=== PATIENT | male | born 1965 | race Caucasian/White ===

== ENCOUNTER 2017-01-07 02:31 | Emergency (ER) ==
[2017-01-07 02:37] VITALS: BP 110/79; TEMP 99.8; BMI 19.9
[2017-01-07] MEDS ORDERED: ZOFRAN 4 MG/2 ML IVP STA (02:39)
[2017-01-07] MEDS ORDERED: SODIUM CHLORIDE 1,000 ML IV STA (02:39)
[2017-01-07 02:48] LABS: BASOPHILS # (AUTO) 0.1 K/uL (0-0.2); BASOPHILS % (AUTO) 0.7 % (0.0-3.0); EOSINOPHILS # (AUTO) 0.1 K/ul (0.0-0.7); EOSINOPHILS % (AUTO) 0.4 % (0.0-7.0); HEMATOCRIT 46.4 % (42.0-52.0); HEMOGLOBIN 15.9 g/dl (14.0-18.0); IMMATURE GRANULOCYTE % (AUTO) 0.4 % (0.0-5.0); LYMPHOCYTES # (AUTO) 0.2 K/uL (0.60-3.4); LYMPHOCYTES % (AUTO) 1.3 (10.0-50.0); MEAN CORPUSCULAR HEMOGLOBIN 30.7 pg (27.0-31.0); MEAN CORPUSCULAR HGB CONC 34.3 (31.8-35.4); MEAN CORPUSCULAR VOLUME 89.6 fl (80.0-94.0); MONOCYTES # (AUTO) 1.3 K/uL (0.4-2.0); MONOCYTES % (AUTO) 6.9 (0-10); NEUTROPHILS # (AUTO) 16.5 K/ul (2.0-6.9); NEUTROPHILS % (AUTO) 90.3; PLATELET COUNT 269 10^3/uL (140-440); RED BLOOD COUNT 5.18 10^6/ul (4.70-6.10)
--- NOTE | 2017-01-07 03:09 | CT ---
EXAM: CT abdomen pelvis without intravenous contrast 01/07/2017. Sagittal and coronal reformatted i mages obtained HISTORY: Abdominal pain COMPARISON: None. FINDINGS: The liver, gallbladder, adrenal glands and kidneys show no acute process. The spleen and pancreas show no acute abnormality. There is no evidence of bowel obstruction. Normal appendix. Unremarkable urinary bladder. There is no free air or free fluid. Diffusely fluid distal small bowel. Fluid filled appearance ext ends throughout the colon. The appearance is suggestive of enteritis/diarrhea. IMPRESSION: 1. Findings suggesting enteritis/diarrhea. 2. No urinary or bowel obstruction and normal appendix. 3. Technically limited examination due to the lack of intravenous contrast.
[2017-01-07 03:11] LABS: FLU INTERNAL QC INTERNAL QC VALID; RAPID FLU A NEGATIVE (NEGATIVE); RAPID FLU B NEGATIVE (NEGATIVE)
[2017-01-07 03:24] LABS: BILIRUBIN,URINE Negative (NEGATIVE); KETONES,URINE Trace (NEGATIVE); LEUKOCYTE ESTERASE ,URINE Negative (NEGATIVE); NITRITE,URINE Negative (NEGATIVE); PROTEIN,URINE Negative (NEGATIVE); URINE, BLOOD Negative (NEGATIVE)
[2017-01-07 03:25] LABS: ADD URINE MICROSCOPIC NO
[2017-01-07 03:25] LABS: ALBUMIN/GLOBULIN RATIO 0.89; ANION GAP 15.2; BILIRUBIN,TOTAL 1.1 mg/dL (0.00-1.20); BUN/CREATININE RATIO 15.62; CALCIUM 9.6 mg/dL (8.2-10.2); CREATINE KINASE MB 1.6 ng/ml (0.0-3.6); CREATININE 0.96 mg/dL (0.60-1.10); POTASSIUM 4.2 mmol/L (3.5-5.1); TOTAL PROTEIN 8.5 g/dL (6.4-8.2); TROPONIN I 0.018 ng/ml (0.0000-0.4000)
[2017-01-07] MEDS ORDERED: SODIUM CHLORIDE 500 ML IV STA (04:01)
--- NOTE | 2017-01-07 04:24 | ED.PDOC ---
General ED Provider: Dr. STEPHANIE PARKER-ER Chief Complaint: Nausea/Vomiting Stated Complaint: i was throwing up and having diarrhea Time Seen by Physician: 02:35 Mode of Arrival: Walk-In Information Source: Patient Exam Limitations: No limitations Nursing and Triage Documentation Reviewed and Agree: Yes GI Complaint Exam - Vomiting/Diarrhea Complaint/Exam Onset/Duration: afew hours Symptoms Are: Still present Initial Severity: Mild Current Severity: Mild Character of Diarrhea: Reports: Watery Aggravating: Reports: None Alleviating: Reports: None Associated Signs and Symptoms: Reports: Cramping Non-GI Risk Factors: Reports: None Surgical Obstruction Risk Factors: Reports: None Abdominal Findings: Present: None Kussmaul Respirations Present: No Differential Diagnoses: Cholecystitis, Viral Gastroenteritis, Bacterial Gastroenteritis Review of Systems - Review Of Systems Constitutional: Reports: No symptoms Eyes: Reports: No symptoms Ears, Nose, Mouth, Throat: Reports: No symptoms Respiratory: Reports: No symptoms Cardiac: Reports: No symptoms GI: Reports: Diarrhea, Nausea, Vomiting : Reports: No symptoms Musculoskeletal: Reports: No symptoms Skin: Reports: No symptoms Neurological: Reports: No symptoms Endocrine: Reports: No symptoms Hematologic/Lymphatic: Reports: No symptoms All Other Systems: Reviewed and Negative Past Medical History - Past Medical History Previously Healthy: Yes Endocrine: Reports: Unknown Cardiovascular: Reports: Unknown Respiratory: Reports: Unknown Hematological: Reports: Unknown Gastrointestinal: Reports: Unknown Genitourinary: Reports: Unknown Neuro/Psych: Reports: Unknown Musculoskeletal: Reports: Unknown Cancer: Reports: Unknown - Surgical History General Surgical History: Reports: Unknown - Family History Family History: Reports: Unknown - Social History Smoking Status: Never smoker Hx Substance Use: No Alcohol Screening: None - Immunizations Tetanus Shot up to Date: No Physical Exam - Physical Exam Appearance: Well-appearing, No pain distress, Well-nourished Eyes: ADOLFO, EOMI, Conjunctiva clear ENT: Ears normal, Nose normal, Oropharynx normal Neck: Supple Respiratory: Airway patent, Breath sounds clear, Breath sounds equal, Respirations nonlabored Cardiovascular: RRR GI/: Soft, Nontender, No masses, Bowel sounds normal, No Organomegaly Musculoskeletal: Normal strength Skin: Warm, Dry, Normal color Neurological: Sensation intact, Motor intact, Reflexes intact, Cranial nerves intact, Alert, Oriented Psychiatric: Affect appropriate, Mood appropriate Interpretation - Radiology Interpretation Radiology Interpretation By: Radiologist Radiology Results: Negative Exam Interpreted: CT Scan Re-Evaluation - Re-Evaluation Time of Re-Evaluation: 04:23 Status: Improved (no nausea or vomiting) Vital Signs Stable: Yes Pain Level: 0 Appearance: NAD Lungs: Clear Skin: Warm and Dry Neuro: Alert and Oriented X3 CV: RRR Critical Care Note - Critical Care Note Total Time (mins): 0 Course - Course Hematology/Chemistry: 01/07/17 02:45 01/07/17 02:45 Orders, Labs, Meds: Lab Review 01/07/17 01/07/17 01/07/17 02:45 02:45 02:45 WBC 18.30 H RBC 5.18 Hgb 15.9 Hct 46.4 MCV 89.6 MCH 30.7 MCHC 34.3 RDW Coeff of Bernabe 12.8 Plt Count 269 Immature Gran % (Auto) 0.4 Neut % (Auto) 90.3 Lymph % (Auto) 1.3 L [place] % (Auto) 6.9 Eos % (Auto) 0.4 Baso % (Auto) 0.7 Immature Gran # (Auto) 0.1 Neut # 16.5 H Lymph # 0.2 L [place] # 1.3 Eos # 0.1 Baso # 0.1 Sodium 141 Potassium 4.2 Chloride 106 Carbon Dioxide 24 Anion Gap 15.2 BUN 15 Creatinine 0.96 Estimated GFR (MDRD) 83.00 BUN/Creatinine Ratio 15.62 Glucose 155 H Calcium 9.6 Total Bilirubin 1.10 AST 28 ALT 31 Alkaline Phosphatase 98 Total Creatine Kinase 145 CK-MB (CK-2) 1.6 CK-MB (CK-2) % 1.27947 Troponin I 0.0180 Total Protein 8.5 H Albumin 4.0 Globulin 4.5 Albumin/Globulin Ratio 0.89 Amylase 49 Lipase 19 Urine Color Urine Clarity Urine pH Ur Specific [place] Urine Protein Urine Glucose (UA) Urine Ketones Urine Blood Urine Nitrite Urine Bilirubin Urine Urobilinogen Ur Leukocyte Esterase Influenza A (Rapid) Negative Influenza B (Rapid) Negative 01/07/17 03:10 WBC RBC Hgb Hct MCV MCH MCHC RDW Coeff of Bernabe Plt Count Immature Gran % (Auto) Neut % (Auto) Lymph % (Auto) [place] % (Auto) Eos % (Auto) Baso % (Auto) Immature Gran # (Auto) Neut # Lymph # [place] # Eos # Baso # Sodium Potassium Chloride Carbon Dioxide Anion Gap BUN Creatinine Estimated GFR (MDRD) BUN/Creatinine Ratio Glucose Calcium Total Bilirubin AST ALT Alkaline Phosphatase Total Creatine Kinase CK-MB (CK-2) CK-MB (CK-2) % Troponin I Total Protein Albumin Globulin Albumin/Globulin Ratio Amylase Lipase Urine Color Yellow Urine Clarity Clear Urine pH 7.0 Ur Specific [place] 1.020 Urine Protein Negative Urine Glucose (UA) Negative Urine Ketones Trace Urine Blood Negative Urine Nitrite Negative Urine Bilirubin Negative Urine Urobilinogen 0.2 Ur Leukocyte Esterase Negative Influenza A (Rapid) Influenza B (Rapid) Orders Category Date Time Status EKG-(ED ONLY) Stat CARDIO 01/07/17 02:39 Completed ED IV/MEDIPORT/POWERPORT .ONCE EMERGENCY 01/07/17 02:39 Active AMYLASE Stat LAB 01/07/17 02:45 Completed CBC W/ AUTO DIFF Stat LAB 01/07/17 02:45 Completed COMPREHENSIVE METABOLIC PANEL Stat LAB 01/07/17 02:45 Completed CREATINE KINASE Stat LAB 01/07/17 02:45 Completed LIPASE Stat LAB 01/07/17 02:45 Completed MOLECULAR GROUP A STREP Stat LAB 01/07/17 02:45 Results RAPID FLU A/B Stat LAB 01/07/17 02:45 Completed STREP SCREEN Stat LAB 01/07/17 02:45 Results TROPONIN I Stat LAB 01/07/17 02:45 Completed URINALYSIS C & S IF INDICATED Stat LAB 01/07/17 03:10 Completed 0.9 % Sodium Chloride [Saline Flush] MEDS 01/07/17 02:39 Ordered 1 syr IVF PRN PRN Ondansetron HCl/Pf [Zofran 4 mg/2 ml] MEDS 01/07/17 02:39 Discontinued 4 mg IVP ONCE STA Sodium Chloride 0.9% [Sodium Chloride] 1,000 ml MEDS 01/07/17 02:39 Discontinued IV BOLUS Sodium Chloride 0.9% [Sodium Chloride] 500 ml MEDS 01/07/17 04:[address] ABDOMEN/PELVIS WO CONTRAST Stat RADS 01/07/17 02:40 Completed Medications Generic Name Dose Route Start Last Admin Trade Name Freq PRN Reason Stop Dose Admin Sodium Chloride 500 mls @ 500 mls/hr 01/07/17 04:01 Sodium Chloride IV 01/07/17 05:00 BOLUS STA Sodium Chloride 1 syr 01/07/17 02:39 01/07/17 02:57 Saline Flush IVF 1 syr PRN PRN Administration To flush IV Discontinued Medications Generic Name Dose Route Start Last Admin Trade Name Freq PRN Reason Stop Dose Admin Sodium Chloride 1,000 mls @ 1,000 mls/hr 01/07/17 02:39 01/07/17 02:57 Sodium Chloride IV 01/07/17 03:38 1,000 mls/hr BOLUS STA Administration Ondansetron HCl 4 mg 01/07/17 02:39 01/07/17 02:57 Zofran 4 Mg/2 Ml IVP 01/07/17 02:40 4 mg ONCE STA Administration Vital Signs: Temp Pulse Resp BP Pulse Ox 01/07/17 02:31 99.8 F H 134 H 18 110/79 96 Departure - Departure Time of Disposition: 04:23 Disposition: HOME SELF-CARE Discharge Problem: Gastroenteritis Instructions: Gastroenteritis (ED) Condition: Good Pt referred to PMD for follow-up: Yes Additional Instructions: clear liquids--no diary for 3 days--zofran 4mg q 4hrs prn nausea #4--rtn if worsens Allergies/Adverse Reactions: Allergies No Known Allergies Allergy (Unverified 01/07/17 02:35) Home Medications: Ambulatory Orders 1 [No Reported Medications] 01/07/17 Disposition Discussed With: Patient
== END 2017-01-07 04:32 | disposition home or self-care (01) ==
LOC: ED 02:31
DX: K52.9 Noninfective gastroenteritis and colitis, unspecified (principal)
CPT/HCPCS: 36415; 80053; 81001; 82150; 82550; 82553; 83690; 84484; 85025; 87651; 87804; 87880; 93005; 93010; 96361; 96374; 96375; 99284